=== PATIENT | female | born 1940 | race Caucasian/White ===

== ENCOUNTER 2016-07-07 22:39 | Inpatient (IN) | payer MEDICARE, BC ==
--- NOTE | ~2016-07-07 | DS ---
Unit #: [id number] #: [id number] Patient: AGA VELAZQUEZ [id number] [address] [address] [id number] I MR#: [id number] NAME: AGA VELAZQUEZ. ROOM: 204 Age: 75 Sex: F Admission Date: 07/07/2016 : 1940 Discharge Date: 07/10/2016 Attending Physician: Reese Schneider M.D. Primary Care Physician: Janet Sim M.D. DISCHARGE SUMMARY DISCHARGE DIAGNOSES 1. Acute hypoxemic respiratory failure. 2. Chronic obstructive pulmonary disease exacerbation. 3. Left lower lobe community-acquired pneumonia. 4. Tobacco abuse. 5. Permanent pacemaker. 6. Mild anemia. DISCHARGE MEDICATIONS 1. Albuterol inhaler 2 puffs q.4 hours as needed. 2. Nasonex 2 sniffs each nostril b.i.d. 3. Spiriva 18 mcg inhaled daily. 4. Zyrtec 10 mg daily. 5. Hydrocodone chlorpheniramine suspension 1 tsp q.12 hours as needed. 6. Xanax 0.5 daily as needed for anxiety. 7. Dulera 200/5 mcg 2 puffs b.i.d. 8. Pravastatin 40 mg daily. 9. Align 4 mg daily. 10. Singulair 10 mg daily. 11. Multivitamin daily. 12. Aspirin 81 mg daily. 13. Calcium with vitamin D 600 mg daily. 14. Levothyroxine 50 mcg daily. 15. Levaquin 750 mg daily for 4 days. 16. Prednisone 40 mg for 2 days, decrease by 10 mg q.2 days until off. FOLLOW-UP Follow up with Dr. Sim in 1 week. HOSPITAL COURSE This is a 75-year-old white female admitted by Dr. Becerril through the emergency room with COPD exacerbation and a left lower lobe pneumonia. Arterial blood gases on 2 liters - pH 7.42, pCO2 34, pO2 74. BMP was initially remarkable for sodium of 128, creatinine of 0.6, lactic acid 1.1. Initial white blood cell count was 15,100, hematocrit 38, platelet count normal. Discharge white blood cell count was 7,200, hematocrit was 33.9, and platelet count was normal. She was admitted, treated with inhaled bronchodilators, IV Solu-Medrol and antibiotics in the form of Levaquin 750 mg daily. Blood cultures were negative. Sputum culture grew Streptococcus pneumoniae 4+. She has responded to treatment with clearing of wheezing, decreased sputum production, decreased cough, and room air ambulatory oxygen saturations are 96%. She will be discharged home on the above-mentioned medications. Unit #: [id number] #: [id number] Patient: AGA VELAZQUEZ I think that she will need followup x-ray in a couple weeks to ensure clearing. I have suggested that she get involved with pulmonary rehab here and having them see her prior to discharge. I have also counselled and recommended smoking cessation. She is to follow up with Dr. Sim in one week. We would be happy to see her in followup if Dr. Sim feels that is necessary for pulmonary function test and continued monitoring. Dictated by... Hugh Marcelo M.D. NAYAN/dottie TD: 07/10/2016 11:31 JOB #: [id number] DISCHARGE SUMMARY X Hugh Marcelo MD X DISCHARGE SUMMARY
--- NOTE | ~2016-07-07 | HP ---
Unit #: [id number] #: [id number] Patient: AGA VELAZQUEZ [id number] [facility] [address] [facility]. [place], [place] [address] [id number] I MR#: [id number] NAME: AGA VELAZQUEZ. ROOM: 204 Age: 75 Sex: F Admission Date: 07/07/2016 : 1940 Attending Physician: Reese Schneider M.D. Primary Care Physician: Janet Sim M.D. HISTORY AND PHYSICAL HISTORY OF PRESENT ILLNESS This is a 75-year-old white female with a history of chronic obstructive pulmonary disease. She was [facility] with increasing shortness of breath, cough, sputum production and increasing dyspnea. She has a long smoking history. She is admitted with pneumonia, COPD and dyspnea at rest. She denies hemoptysis, hoarseness or weight loss. REVIEW OF SYSTEMS Review of systems is significant for extreme shortness of breath on exertion. She has had no significant weight loss, seizures, changes in her vision, chest pain, syncope, joint swelling or rash. PAST MEDICAL HISTORY Past medical history is otherwise significant for her COPD. She does smoke and does not drink and does not do drugs. She is very anxious. FAMILY HISTORY Her family history is noncontributory. PHYSICAL EXAMINATION VITAL SIGNS: O2 on 2 L was over 90%, temperature was 97.8, pulse was 92 and regular, respirations 16 unlabored, blood pressure 143/62. HEAD AND NECK: Normocephalic. Pupils are round and reactive to light and extraocular movements are intact. Nasal and oral mucosa was dry. There is no supraclavicular or cervical adenopathy. CHEST: There is increased AP diameter of the chest with rales and wheezes bilaterally. HEART: There is normal S1 and S2, slight systolic murmur. ABDOMEN: Abdomen is soft, nontender. No enlargement of the liver or spleen. EXTREMITIES: Extremities showed no cyanosis, clubbing or edema at this time. NEUROLOGIC: She is awake, alert and oriented, shows no gross neurologic defects. SKIN: Skin was free of rashes. MUSCULOSKELETAL: Joints were not inflamed or swollen. LYPOHATIC: There is no supraclavicular or cervical adenopathy. DIAGNOSTIC STUDIES LABORATORY: Her laboratory data included a blood gas showing a pH of 7.42, CO2 of 32, O2 of 74 on 2 L. Glucose was 128, BUN of 8, creatinine 0.6, sodium 128, potassium 3.6, chloride 95, CO2 of 23, lactate of 2.5, Unit #: [id number] #: [id number] Patient: AGA VELAZQUEZ L white count 15.1, hematocrit of 38, MCV of 87. Sputum culture is a few Gram-positive cocci. IMAGING: Chest x-ray shows COPD with extensive airspace consolidation of left lower lobe consistent with pneumonia. ALLERGIES Penicillin, sulfa, macrolides and ketolides. MEDICATIONS AT HOME Include alprazolam, Dulera, Zyrtec, Tussionex, Synthroid, Nasonex, pravastatin, Spiriva, Singular and aspirin, multivitamins, Caltrate and Align. IMPRESSION Acute exacerbation of chronic obstructive pulmonary disease with left lower lobe infiltrate: Will plan to treat with IV Levaquin, inhaled bronchodilators and supplemental oxygen along with IV steroids. She wishes home nebulizer and possible home oxygen on discharge. Dictated by Arsalan Gant/florencia TD: 07/08/2016 18:50 JOB #: [id number] HISTORY AND PHYSICAL X Mauricio Becerril MD X HISTORY AND PHYSICAL
--- NOTE | ~2016-07-07 | CR72 ---
[facility] A Service of [facility] & [facility] RADIOLOGY TEXT RESULTS PATIENT: AGA VELAZQUEZ LOCATION: [facility] : 40 UNIT #: [id number] AGE: [address]: Reese Schneider MD SEX: F ORDER DR: [id number] [facility] [address] [facility]. [place], [place] [address] [id number] I MR#: [id number] Acc #: [id number] NAME: AGA VELAZQUEZ. : 1940 SEX: F STUDY DATE/TIME: 07/07/2016 20:35 UNIT: [facility] ROOM: [facility] STUDY DESCRIPTION: CR Chest Single View Portable Attending Physician: Reese Schneider M.D. Ordering Physician: Bunny Porras M.D. Primary Care Physician: Janet Sim M.D. MEDICAL IMAGING REPORT This report is preliminary unless electronic signature is present EXAM Portable chest, 07/07/2016. HISTORY Short of breath beginning 1 day ago. COPD exacerbation. FINDINGS Cardiac and mediastinal structures are stable, compared with 12/04/2014. Cardiac pacemaker is unchanged. The lungs are hyperinflated with emphysematous and fibrotic changes characteristic of COPD. There is dense airspace consolidation in the left lower lobe, characteristic of pneumonia. Focal fibrosis, right upper lobe. No pneumothorax. IMPRESSION COPD with extensive airspace consolidation, left lower lobe, characteristic of pneumonia. Dictated by... Tee Benton M.D. THIS IS AN ELECTRONICALLY VERIFIED REPORT Tee Benton M.D. at 07/09/2016 2:19 PM KRT/dayana TD: 07/08/2016 15:41 JOB #: [id number] MEDICAL IMAGING REPORT COPY
--- NOTE | ~2016-07-07 | EKG ---
PATIENT: AGA VELAZQUEZ UNIT #: [id number] Ventricular Rate: 97 BPM Atrial Rate: 97 BPM P-R Interval: 202 ms QRS Duration: 128 ms Q-T Interval: 380 ms QTC Calculation(Bezet): 482 ms P [place]: 78 degrees Calculated R [place]: 91 degrees Calculated T [place]: -51 degrees Diagnosis Line: Atrial-sensed ventricular-paced rhythm Diagnosis Line: Abnormal ECG Diagnosis Line: No previous ECGs available Diagnosis Line: Confirmed by CASTILLO DE SANTIAGO MD ([id number]) on Diagnosis Line: 07/10/2016 12:02:08 AM INTERPRETING MD: JONNATHAN MCMULLEN
[2016-07-07 20:57] LABS: POC - CKMB 1.5 ng/mL (0.0-7.9); POC - TROPONIN <0.05 ng/mL (<=0.05)
[2016-07-07 20:58] LABS: BASOPHIL# 0.1 X10e3 (0-0.3); BASOPHIL% 0.5 % (0-2.5); EOSINOPHIL% 0.1 % (0.0-7.0); HEMATOCRIT 38.8 % (35.0-45.0); HEMOGLOBIN 12.9 gm/dL (12.0-16.0); LYMPHOCYTE# 0.4 X10e3 (1.0-3.5); LYMPHOCYTE% 2.8 % (17.0-45.0); MEAN CELL VOLUME 87.7 FL (83-96); MEAN CORPUSCULAR HEMOGLOBIN 29.3 PG (28-34); MEAN CORPUSCULAR HGB CONC 33.4 g/dL (30-36); MEAN PLATELET VOLUME 6.9 FL (6.5-11.5); MONOCYTE# 0.7 X10e3 (0-1.0); MONOCYTE% 4.5 % (3.0-12.0); NEUTROPHIL# 13.9 X10e3 (1.5-7.1); NEUTROPHIL% 92.1 % (40-75); PLATELET COUNT 322 X10e3 (140-420); RED BLOOD COUNT 4.42 X10e (3.90-5.30); RED CELL DISTRIBUTION WIDTH 13.3 % (11.0-15.5); WHITE BLOOD COUNT 15.1 X10e3 (4.0-10.5)
[2016-07-07 20:59] LABS: DIFF IND YES
[2016-07-07 21:18] LABS: ARTERIAL BLD GAS O2 SATURATION 91.3 % (90.0-100.0); ARTERIAL BLOOD GAS CARBOXY HB 1.6 %sat (0.0-9.0); ARTERIAL BLOOD GAS MET HB 0.7 %sat (0.0-2.0); ARTERIAL BLOOD GAS PCO2 32.8 mmHg (35.0-45.0); ARTERIAL BLOOD GAS pH 7.473 (7.350-7.450)
[2016-07-07 21:18] LABS: BLOOD UREA NITROGEN 8 mg/dL (9-23); BUN/CREATININE RATIO 13.33; CALCIUM SERUM 8.7 mg/dL (8.4-10.2); CARBON DIOXIDE 23 mmol/L (22-31); CHLORIDE 95 mmol/L (100-111); CREATININE SERUM 0.6 mg/dL (0.6-1.4); GLOM FILT RATE Estimated ABOVE60 mL/min (>60); GLUCOSE FASTING 128 mg/dL (70-110); POTASSIUM 3.6 mmol/L (3.5-5.1); SODIUM 128 mmol/L (135-145)
[2016-07-07 21:19] LABS: ARTERIAL BLOOD GAS DELIVERY NASAL CANNULA; ARTERIAL BLOOD GAS PO2 62.9 mmHg (80.0-100); ARTERIAL DRAW? NO
[2016-07-07 21:24] LABS: PLATELET ESTIMATE NORMAL (NORMAL); RBC NORMAL YES
[~2016-07-07 22:39] MED LIST: ALLEGRA PO; AMBIEN PO; CENTRUM PO; LEVAQUIN PO; SINGULAIR PO; TUSSIONEX PENN473 ML PO
[2016-07-07] MEDS ORDERED: DULERA 200 MCG/13 GM INH (23:23)
[2016-07-07] MEDS ORDERED: ALPRAZOLAM0.5 MG PO (23:23)
[2016-07-07] MEDS ORDERED: ZYRTEC10 M1 PO (23:24)
[2016-07-07] MEDS ORDERED: HYDROCODONE-CHLO5 ML PO (23:24)
[2016-07-07] MEDS ORDERED: NASONEX17 GM (23:25)
[2016-07-07] MEDS ORDERED: PRAVASTATIN SOD40 MG PO (23:25)
[2016-07-07] MEDS ORDERED: LEVO-T50 MCG PO (23:25)
[2016-07-07] MEDS ORDERED: SINGULAIR PO (23:26)
[2016-07-07] MEDS ORDERED: MULTI VITAMIN1 EACH PO (23:26)
[2016-07-07] MEDS ORDERED: SPIRIVA18 MCG INH (23:26)
[2016-07-07] MEDS ORDERED: ASPIRIN EC81 M1 PO (23:26)
[2016-07-07] MEDS ORDERED: CALTRATE 600+D PO (23:27)
[2016-07-07] MEDS ORDERED: ALIGN4 MG PO (23:27)
[2016-07-08 04:35] LABS: ARTERIAL BLD GAS O2 SATURATION 94.6 % (90.0-100.0); ARTERIAL BLOOD GAS HCO3 22.6 mmol/L; ARTERIAL BLOOD GAS MET HB 0.8 %sat (0.0-2.0); ARTERIAL BLOOD GAS PCO2 34.2 mmHg (35.0-45.0); ARTERIAL BLOOD GAS pH 7.429 (7.350-7.450)
[2016-07-08 04:36] LABS: ARTERIAL BLOOD GAS ART SITE RIGHT BRACHIAL; ARTERIAL BLOOD GAS DELIVERY NASAL CANNULA; ARTERIAL DRAW? YES
[2016-07-09 06:10] LABS: HEMATOCRIT 31.5 % (35.0-45.0); MEAN CELL VOLUME 87.6 FL (83-96); MEAN CORPUSCULAR HEMOGLOBIN 30.1 PG (28-34); MEAN CORPUSCULAR HGB CONC 34.4 g/dL (30-36); MEAN PLATELET VOLUME 7.4 FL (6.5-11.5); RED BLOOD COUNT 3.6 X10e (3.90-5.30); RED CELL DISTRIBUTION WIDTH 13.2 % (11.0-15.5); WHITE BLOOD COUNT 8.9 X10e3 (4.0-10.5)
[2016-07-09 06:21] LABS: HEMOGLOBIN 10.8 gm/dL (12.0-16.0)
[2016-07-09 06:47] LABS: BLOOD UREA NITROGEN 7 mg/dL (9-23); CALCIUM SERUM 8.7 mg/dL (8.4-10.2); CARBON DIOXIDE 24 mmol/L (22-31); CHLORIDE 99 mmol/L (100-111); CREATININE SERUM 0.4 mg/dL (0.6-1.4); GLOM FILT RATE Estimated ABOVE60 mL/min (>60); GLUCOSE FASTING 116 mg/dL (70-110); POTASSIUM 3.7 mmol/L (3.5-5.1); SODIUM 131 mmol/L (135-145)
[2016-07-10 05:24] LABS: HEMATOCRIT 33.9 % (35.0-45.0); HEMOGLOBIN 11.3 gm/dL (12.0-16.0); MEAN CELL VOLUME 88.6 FL (83-96); MEAN CORPUSCULAR HEMOGLOBIN 29.5 PG (28-34); MEAN CORPUSCULAR HGB CONC 33.3 g/dL (30-36); MEAN PLATELET VOLUME 7.4 FL (6.5-11.5); RED BLOOD COUNT 3.83 X10e (3.90-5.30); RED CELL DISTRIBUTION WIDTH 13.2 % (11.0-15.5); WHITE BLOOD COUNT 7.2 X10e3 (4.0-10.5)
[2016-07-10 05:57] LABS: BLOOD UREA NITROGEN 8 mg/dL (9-23); CALCIUM SERUM 8.7 mg/dL (8.4-10.2); CARBON DIOXIDE 23 mmol/L (22-31); CHLORIDE 100 mmol/L (100-111); CREATININE SERUM 0.4 mg/dL (0.6-1.4); GLOM FILT RATE Estimated ABOVE60 mL/min (>60); GLUCOSE FASTING 119 mg/dL (70-110); POTASSIUM 3.7 mmol/L (3.5-5.1); SODIUM 131 mmol/L (135-145)
[2016-07-10] MEDS ORDERED: LEVAQUIN750 M1 PO (11:30)
[2016-07-10] MEDS ORDERED: ALBUTEROL17 GM INH (11:31)
[2016-07-10] MEDS ORDERED: PREDNISONE10 MG/DOSE PO (11:31)
[2016-11-02] MEDS ORDERED: XYZAL5 MG PO (12:02)
[2016-11-02] MEDS ORDERED: TRAMADOL HCL50 M2 PO (12:03)
[2016-11-02] MEDS ORDERED: TUSSIONEX PENN115 ML (12:03)
== END 2016-07-10 12:26 | disposition home or self-care (01) | DRG 189 ==
LOC: CED 22:39 → CEDOF 23:05 → C2A 23:55
PROVIDERS: Emergency Medicine; Internal Medicine
DX: J96.01 Acute respiratory failure with hypoxia (principal); J13 Pneumonia due to Streptococcus pneumoniae; D64.9 Anemia, unspecified; J44.0 Chronic obstructive pulmonary disease with (acute) lower respiratory infection; J44.1 Chronic obstructive pulmonary disease with (acute) exacerbation; F17.210 Nicotine dependence, cigarettes, uncomplicated; Z95.0 Presence of cardiac pacemaker; Z88.0 Allergy status to penicillin; Z88.2 Allergy status to sulfonamides; Z88.8 Allergy status to other drugs, medicaments and biological substances
CPT/HCPCS: 36415; 36600; 71010; 80048; 82553; 82803; 83605; 83880; 84484; 85025; 85027; 87040; 87070; 87077; 87186; 87205; 93005; 94640; 94664; 94760; 96365; 96375; 99285; J0456; J0696; J1956; J2920; J2930

== ENCOUNTER → 2016-08-02 | Outpatient (CLI) | payer MEDICARE, BC ==
[~2016-08-02] MED LIST changes: +ALBUTEROL17 GM INH; +ALIGN4 MG PO; +ALPRAZOLAM0.5 MG PO; +ASPIRIN EC81 M1 PO; +CALTRATE 600+D PO; +DULERA 200 MCG/13 GM INH; +HYDROCODONE-CHLO5 ML PO; +LEVAQUIN750 M1 PO; +LEVO-T50 MCG PO; +MULTI VITAMIN1 EACH PO; +NASONEX17 GM; +PRAVASTATIN SOD40 MG PO; +PREDNISONE10 MG/DOSE PO; +SPIRIVA18 MCG INH; +TRAMADOL HCL50 M2 PO; +TUSSIONEX PENN115 ML; +XYZAL5 MG PO; +ZYRTEC10 M1 PO
--- NOTE | ~2016-08-02 | CR71 ---
[facility] A Service of [facility] & [facility] RADIOLOGY TEXT RESULTS PATIENT: AGA VELAZQUEZ LOCATION: [facility] : 40 UNIT #: [id number] AGE: [address]: Janet Sim MD SEX: F ORDER DR: [id number] [facility] [address] [place], [place] [address] [id number] O MR#: [id number] Acc #: [id number] NAME: AGA VELAZQUEZ : 1940 SEX: F STUDY DATE/TIME: 08/02/2016 10:33 UNIT: [facility] ROOM: STUDY DESCRIPTION: CR Chest Single View Attending Physician: Janet Sim M.D. Referring Physician: Janet Sim M.D. Ordering Physician: Janet Sim M.D. Primary Care Physician: Janet Sim M.D. MEDICAL IMAGING REPORT This report is preliminary unless electronic signature is present EXAM Chest x-ray 08/02 INDICATIONS Left lower lobe pneumonia. Shortness of air and cough since 07/06/2016. FINDINGS AP views of the chest compared with 07/07/2016. Cardiac and mediastinal contours remain normal. Left-side pacer in place. There is pulmonary emphysema with postop change in the right upper lobe. Left lower lobe infiltrate has resolved. The lungs are now clear. IMPRESSION Emphysema. No active disease. Left lower lobe infiltrate has resolved. Dictated by... Bunny Yousif Jr., M.D. THIS IS AN ELECTRONICALLY VERIFIED REPORT Bunny Yousif Jr., M.D. at 08/02/2016 3:54 PM CHRISTAL/zoë TD: 08/02/2016 13:41 JOB #: [id number] MEDICAL IMAGING REPORT Page 1 of 1 COPY
== END | disposition home or self-care (01) ==
LOC: CRAD 10:18
DX: J18.9 Pneumonia, unspecified organism (principal); J43.9 Emphysema, unspecified
CPT/HCPCS: 71010

== ENCOUNTER → 2016-09-08 | Outpatient (CLI) | payer MEDICARE, BC ==
--- NOTE | ~2016-09-08 | MY11 ---
[facility] A Service of [facility] RADIOLOGY TEXT RESULTS PATIENT: AGA VELAZQUEZ LOCATION: [facility] : 40 UNIT #: [id number] AGE: [address]: Janet Sim MD SEX: F ORDER DR: [id number] [facility] [address] [facility]. [place], [place] [address] [id number] O MR#: [id number] Acc #: [id number] NAME: AGA VELAZQUEZ. : 1940 SEX: F STUDY DATE/TIME: 09/08/2016 15:50 UNIT: [facility] ROOM: STUDY DESCRIPTION: MY Mammogram Screening Dig Justin Attending Physician: Janet Sim M.D. Referring Physician: Janet Sim M.D. Ordering Physician: Janet Sim M.D. Primary Care Physician: Janet Sim M.D. MEDICAL IMAGING REPORT This report is preliminary unless electronic signature is present EXAM Bilateral digital screening mammogram CAD. DATE 09/09/2015 HISTORY 75-year-old female. No personal or family history breast cancer. Current complaints. Right breast scar ("patient does not why."). COMPARISON Bilateral screening mammogram 12/16/2014, 07/22/2012, 07/21/2010. FINDINGS CC and MLO views were obtained of each breast utilizing digital technique and reviewed with an FDA-approved CAD device. Heterogeneously dense fibroglandular tissue is present bilaterally which can limit sensitivity of mammography. A skin marker was placed over the subareolar right breast lateral hemisphere denoting an area of scarring. No new or suspicious nodule, architectural distortion or clustered microcalcification is identified. Presumed pacemaker/defibrillator device projects over the left axillary region. IMPRESSION Routine bilateral screening mammogram is recommended in year. Patients over the age of 40 are entered into a reminder system with target due date for the next mammogram. BIRADS: 2 Benign finding. Dictated by... [facility] A Service of [facility] & [facility] RADIOLOGY TEXT RESULTS PATIENT: AGA VELAZQUEZ LOCATION: [facility] : 40 UNIT #: [id number] AGE: [address]: Janet Sim MD SEX: F ORDER DR: Leana Villanueva M.D. THIS IS AN ELECTRONICALLY VERIFIED REPORT Leana Villanueva M.D. at 09/12/2016 7:08 AM LASHAWN/steffany TD: 09/11/2016 12:23 JOB #: [id number] MEDICAL IMAGING REPORT Page 1 of 1 COPY
== END | disposition home or self-care (01) ==
LOC: CWCC 08:14
DX: Z12.31 Encounter for screening mammogram for malignant neoplasm of breast (principal); L90.5 Scar conditions and fibrosis of skin
CPT/HCPCS: G0202

== ENCOUNTER 2016-10-26 10:06 | Emergency (ER) | payer OTHER, MEDICARE ==
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
--- NOTE | ~2016-10-26 | EKG ---
PATIENT: AGA VELAZQUEZ UNIT #: [id number] Ventricular Rate: 71 BPM Atrial Rate: 71 BPM P-R Interval: 170 ms QRS Duration: 186 ms Q-T Interval: 502 ms QTC Calculation(Bezet): 545 ms P [place]: 82 degrees Calculated R [place]: 92 degrees Calculated T [place]: -7 degrees Diagnosis Line: Atrial-sensed ventricular-paced rhythm Diagnosis Line: Abnormal ECG Diagnosis Line: When compared with ECG of 07-JUL-2016 20:22, Diagnosis Line: Vent. rate has decreased BY 26 BPM Diagnosis Line: Confirmed by CINDY COTA MD ([id number]) on 10/26/2016 Diagnosis Line: 8:42:10 PM INTERPRETING MD: BEATA MCMULLEN
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
[~2016-10-26 10:06] MED LIST changes: -TRAMADOL HCL50 M2 PO; -TUSSIONEX PENN115 ML; -XYZAL5 MG PO
[2016-10-26 11:43] LABS: BASOPHIL% 0.8 % (0-2.5); EOSINOPHIL# 0.1 X10e3 (0-0.7); EOSINOPHIL% 2.2 % (0.0-7.0); HEMATOCRIT 36.6 % (35.0-45.0); LYMPHOCYTE# 1.1 X10e3 (1.0-3.5); MEAN CELL VOLUME 86.4 FL (83-96); MEAN CORPUSCULAR HEMOGLOBIN 28.3 PG (28-34); MEAN CORPUSCULAR HGB CONC 32.7 g/dL (30-36); MEAN PLATELET VOLUME 7.4 FL (6.5-11.5); MONOCYTE# 0.6 X10e3 (0-1.0); MONOCYTE% 11.2 % (3.0-12.0); NEUTROPHIL# 3.2 X10e3 (1.5-7.1); NEUTROPHIL% 63.8 % (40-75); PLATELET COUNT 234 X10e3 (140-420); RED BLOOD COUNT 4.23 X10e (3.90-5.30); RED CELL DISTRIBUTION WIDTH 16.5 % (11.0-15.5); WHITE BLOOD COUNT 5.1 X10e3 (4.0-10.5)
[2016-10-26 11:49] LABS: DIFF IND NO
[2016-10-26 11:56] LABS: POC - CKMB 2.6 ng/mL (0.0-7.9); POC - TROPONIN <0.05 ng/mL (<=0.05)
[2016-10-26 12:01] LABS: CALCIUM SERUM 8.6 mg/dL (8.4-10.2); CREATININE SERUM 0.5 mg/dL (0.6-1.4); POTASSIUM 3.8 mmol/L (3.5-5.1)
[2016-10-26 13:36] LABS: URINE SOURCE CLEAN CATCH
[2016-10-26 13:42] LABS: URINE APPEARANCE CLEAR; URINE BILIRUBIN NEG (NEG); URINE BLOOD NEG (NEG); URINE COLOR YELLOW; URINE GLUCOSE NEG (NEG); URINE KETONE NEG (NEG); URINE LEUKOCYTE ESTERASE TRACE (NEG); URINE NITRATE NEG (NEG); URINE PH 7.5 (5-8); URINE PROTEIN NEG (NEG); URINE SPECIFIC GRAVITY 1.005 (1.003-1.035); URINE UROBILINOGEN 0.2 MG/DL (NEG)
[2016-10-26 13:46] LABS: URINE BACTERIA AUWI NEG (NEGATIVE); URINE SQUAMOUS EPITHELIAL CELL NONE SEEN /[HPF]
[2016-10-26 13:49] LABS: CULTURE INDICATED? NO
[2016-11-02] MEDS ORDERED: XYZAL5 MG PO (12:02)
[2016-11-02] MEDS ORDERED: TRAMADOL HCL50 M2 PO (12:03)
[2016-11-02] MEDS ORDERED: TUSSIONEX PENN115 ML (12:03)
== END 2016-10-26 14:44 | disposition home or self-care (01) ==
LOC: CED 10:06
PROVIDERS: Emergency Medicine
DX: S52.502A Unspecified fracture of the lower end of left radius, initial encounter for closed fracture (principal); S52.602A Unspecified fracture of lower end of left ulna, initial encounter for closed fracture; J44.9 Chronic obstructive pulmonary disease, unspecified; Z88.0 Allergy status to penicillin; Z88.2 Allergy status to sulfonamides; Z88.5 Allergy status to narcotic agent; Z88.7 Allergy status to serum and vaccine; Z88.8 Allergy status to other drugs, medicaments and biological substances; Z79.899 Other long term (current) drug therapy; V89.2XXA Person injured in unspecified motor-vehicle accident, traffic, initial encounter; Y92.410 Unspecified street and highway as the place of occurrence of the external cause
CPT/HCPCS: 29125; 36415; 70450; 72125; 73090; 73100; 73110; 80048; 81003; 82553; 84484; 85025; 93005; 96374; 99285